=== PATIENT | female | born 1995 | race Caucasian/White ===

== ENCOUNTER 2017-03-23 11:02 | Emergency (ER) | payer MEDICAID ==
[~2017-03-23] VITALS: Ht 170.2 cm; Wt 87.1 kg
[2017-03-23 11:10] VITALS: BP 130/59
[2017-03-23] MEDS ORDERED: HYDROcodone/APAP 5/325 MG 1 TAB TAB PO ONE (11:15)
--- NOTE | 2017-03-23 11:15 | NUR ---
Patient ambulated to [facility]. RN evaluating patient.
--- NOTE | 2017-03-23 11:17 | NUR ---
SPLINT TO RIGHT HAND REMOVED PER DR. MELTON ORDER. PT TOLERATED WELL.
--- NOTE | 2017-03-23 11:22 | NUR ---
RIGHT HAND PAIN SINCE YESTERDAY; S/P FALL; SEEN AT [place], SPLINTED; DX BOXER FRACTURE C/O NUMBNESS AND TINGLING TO FINGERS, SPLINT REMOVED BY DR MELTON HX: NONE
--- NOTE | 2017-03-23 11:34 | NUR ---
PT REPORTS SHE WENT TO [facility] AND THEY WERE NOT ABLE TO PROVIDE HER WITH ANY ORTHOPEDIC FOLLOW UP, WAS GIVEN SEVERAL NUMBERS THATARE NOT WORKING. PER PT, SHE DOES NOT KNOW WHERE TO GO. MODERATE PEUPLE IN COLOR NOTED TO RT LATERAL HAND. STATES SHE TRIPPED WHILE DOING LAUNDRY YESTERDAY. ALSO C/O NUMBNESS AND MILD TINGLING TO HAND. CAP REFILL<3, RADIAL PULSES PRESENT AND STRONG.
--- NOTE | 2017-03-23 11:48 | NUR ---
DR MELTON AT BEDSIDE FOR EXAM
[2017-03-23 12:26] VITALS: BP 116/70
--- NOTE | 2017-03-23 12:26 | NUR ---
SPLINT APPLIED BY [facility] EMT
--- NOTE | 2017-03-23 12:27 | NUR ---
Patient discharged with v/s stable. Written and verbal after care instructions given and explained. Patient alert, oriented and verbalized understanding of instructions. Ambulatory with steady gait. All questions addressed prior to discharge. ID band removed. Patient advised to follow up with PMD. Rx of NORCO, NAPROXYN given. Patient educated on indication of medication including possible reaction and side effects. Opportunity to ask questions provided and answered.
== END 2017-03-23 12:27 | disposition home or self-care (01) ==
LOC: MED 11:02
DX: S62.317A Displaced fracture of base of fifth metacarpal bone, left hand, initial encounter for closed fracture (principal); W01.0XXA Fall on same level from slipping, tripping and stumbling without subsequent striking against object, initial encounter; Y93.89 Activity, other specified; Y92.89 Other specified places as the place of occurrence of the external cause; Y99.8 Other external cause status
CPT/HCPCS: 73130; 99284